=== PATIENT | female | born 1980 | race Caucasian/White ===

== ENCOUNTER 2022-08-31 09:21 | Day surgery (SDC) | payer OTHER ==
[~2022-08-31] VITALS: Ht 175.3 cm; Wt 65.7 kg
[2022-08-31] MEDS ORDERED: LARIN FE PO (10:20)
--- NOTE | 2022-08-31 11:55 | NUR ---
08/31/22 1155 Marilynn Dobbins 100CC NACL FLUID DEFICIT FROM HYSTEROSCOPY.
--- NOTE | 2022-08-31 13:06 | NUR ---
08/31/22 1306 Rob Alvarez PT VOIDED PRIOR TO DISCHARGE.
== END 2022-08-31 12:55 | disposition home or self-care (01) ==
LOC: ORSCSDS 09:21
PROVIDERS: Obstetrics & Gynecology
PROC: 0U5B8ZZ Destruction of Endometrium, Via Natural or Artificial Opening Endoscopic (ICD-10-PCS; principal; 2022-08-31 10:45)
DX: N92.0 Excessive and frequent menstruation with regular cycle (principal); N94.6 Dysmenorrhea, unspecified
CPT/HCPCS: J0690; J1100; J1885; J2250; J2405; J2704; J3010; J7120

== ENCOUNTER → 2023-02-26 | Outpatient (CLI) | payer OTHER ==
[~2023-02-26] MED LIST: LARIN FE PO
== END | disposition home or self-care (01) ==
LOC: LAB 19:11 → LAB SHORT 19:11
DX: N39.0 Urinary tract infection, site not specified (principal)
CPT/HCPCS: 87077; 87086; 87186